=== PATIENT | male | born 1945 | race Caucasian/White ===

== ENCOUNTER → 2017-11-22 | Outpatient (CLI) | payer MEDICARE | LOC: CVU 13:58 | PROVIDERS: ATTEND Internal Medicine Cardiovascular Disease | DX: I35.1 Nonrheumatic aortic (valve) insufficiency (principal); I10 Essential (primary) hypertension; I48.91 Unspecified atrial fibrillation | CPT/HCPCS: 93306 ==

== ENCOUNTER → 2019-11-18 | Outpatient (CLI) | payer MEDICARE | END | disposition home or self-care (01) | LOC: CFH 07:36 | PROVIDERS: ATTEND Internal Medicine Cardiovascular Disease | DX: J98.4 Other disorders of lung (principal); I48.91 Unspecified atrial fibrillation; I11.9 Hypertensive heart disease without heart failure; I35.1 Nonrheumatic aortic (valve) insufficiency | CPT/HCPCS: 75571; 78452; 93017; A9502 ==

== ENCOUNTER 2020-02-20 10:56 | Day surgery (SDC) | payer MEDICARE ==
[~2020-02-20] VITALS: Ht 181.6 cm; Wt 78.2 kg
[2020-02-20] MEDS ORDERED: SODIUM CHLORIDE 0.9% 1,000 ML IV SCH ×2 (11:00→13:07)
[2020-02-20 11:25] VITALS: BP 162/98
[2020-02-20] MEDS ORDERED: INSU100C5 SQ-INSULIN (11:43)
[2020-02-20] MEDS ORDERED: UBID100T5 PO (11:43)
[2020-02-20] MEDS ORDERED: TAMS-11 PO (11:43)
[2020-02-20] MEDS ORDERED: ASPI-191 PO (11:43)
[2020-02-20] MEDS ORDERED: MULT-464 PO (11:43)
[2020-02-20] MEDS ORDERED: ATOR40TA PO (11:43)
[2020-02-20] MEDS ORDERED: ALPR0.5T6 PO (11:43)
[2020-02-20] MEDS ORDERED: METF500T17 PO (11:43)
[2020-02-20] MEDS ORDERED: INSU100V8 SQ (11:43)
[2020-02-20] MEDS ORDERED: ENAL20TA9 PO (11:43)
[2020-02-20] MEDS ORDERED: GLUC1CAP18 PO (11:52)
[2020-02-20] MEDS ORDERED: TURM500C4 PO (11:52)
[2020-02-20] MEDS ORDERED: [UNRECOGNIZED DRUG - OTHER] PO (11:52)
[2020-02-20] MEDS ORDERED: ASCO100019 PO (11:52)
[2020-02-20] MEDS ORDERED: ZINC25CA PO (11:52)
[2020-02-20] MEDS ORDERED: [UNRECOGNIZED DRUG - OTHER] PO (11:52)
[2020-02-20 11:57] LABS: BASOPHILS # (AUTO) 0.03 x10^3/uL (0-0.1); BASOPHILS % (AUTO) 1 % (0-1); EOSINOPHILS % (AUTO) 5 % (1-7); LYMPHOCYTES # (AUTO) 1.36 x10^3/uL (1-3.4); LYMPHOCYTES % (AUTO) 21 % (22-44); MD NO; MEAN CORPUSCULAR HEMOGLOBIN 31.5 pg (27.5-34.5); MEAN CORPUSCULAR HGB CONC 32.8 g/dL (33.2-36.2); MEAN CORPUSCULAR VOLUME 96.1 fL (81-97); MEAN PLATELET VOLUME 10.3 fL (7.4-10.4); MONOCYTES # (AUTO) 0.34 x10^3/uL (0.2-0.8); MONOCYTES % (AUTO) 5 % (2-9); NEUTROPHILS # (AUTO) 4.45 x10^3/uL (1.8-6.8); NEUTROPHILS % (AUTO) 69 % (42-75); PLATELET COUNT 131 x10^3/uL (130-400); RED BLOOD COUNT 4.89 x10^6/uL (4.38-5.82); RED CELL DISTRIBUTION WIDTH 13.7 % (9.4-14.8)
[2020-02-20 12:14] LABS: ANION GAP 6 mmol/L (5-15); CALCIUM 9.5 mg/dL (8.5-10.1); CHLORIDE 107 mmol/L (98-107); CREATININE 0.97 mg/dL (0.7-1.3)
== END 2020-02-20 15:09 | disposition home or self-care (01) ==
LOC: CACL 10:56
PROVIDERS: ATTEND Internal Medicine Cardiovascular Disease
DX: R00.1 Bradycardia, unspecified (principal); R07.89 Other chest pain; I10 Essential (primary) hypertension; E11.9 Type 2 diabetes mellitus without complications; I48.91 Unspecified atrial fibrillation; Z79.4 Long term (current) use of insulin; Z79.899 Other long term (current) drug therapy; Z79.82 Long term (current) use of aspirin; Z82.49 Family history of ischemic heart disease and other diseases of the circulatory system
CPT/HCPCS: 36415; 80048; 84443; 85025; 93458; C1769; C1894; Q9967

== ENCOUNTER 2020-02-21 09:59 | Observation (INO) | payer MEDICARE ==
[~2020-02-21] VITALS: Ht 181.6 cm; Wt 76.0 kg
[~2020-02-21 09:59] MED LIST: ALPR0.5T6 PO; ASCO100019 PO; ASPI-191 PO; ATOR40TA PO; ENAL20TA9 PO; FENTANYL PF 100 MCG/2ML ONE; GLUC1CAP18 PO; HEPARIN 1,000 UNITS/ML, 10ML ONE; INSU100C5 SQ-INSULIN; INSU100V8 SQ; LIDOCAINE-MPF 1%, 5ML ONE; METF500T17 PO; MIDAZOLAM 1 MG/ML, 5ML ONE; MULT-464 PO; NITROGLYCERIN 30 MCG/ML, 20ML VIAL ONE; TAMS-11 PO; TURM500C4 PO; UBID100T5 PO; VERAPAMIL 2.5 MG/ML, 2ML ONE; ZINC25CA PO; [UNRECOGNIZED DRUG - OTHER] PO; [UNRECOGNIZED DRUG - OTHER] PO
[2020-02-21] MEDS: SODIUM CHLORIDE 0.9% 1,000 ML IV SCH ×2 (10:47→18:47)
[2020-02-21 10:55] VITALS: BP 179/82
[2020-02-21] MEDS ORDERED: PLEASE ENTER HEIGHT AND WEIGHT MC SCH (11:30)
[2020-02-21] MEDS ORDERED: FENTANYL PF 100 MCG/2ML ONE (11:43)
[2020-02-21] MEDS ORDERED: CEFAZOLIN PMX 1GM/50ML 50 ML ONE (12:26)
[2020-02-21] MEDS ORDERED: LIDOCAINE 2%, 20ML ONE (12:26)
[2020-02-21] MEDS ORDERED: CEFAZOLIN 1,000 MG ONE ×2 (12:26→13:09)
[2020-02-21] MEDS ORDERED: KETOROLAC 30 MG/1 ML ONE (13:04)
[2020-02-21] MEDS ORDERED: DEXAMETHASONE 4 MG/ML, 1ML ONE (13:09)
[2020-02-21] MEDS ORDERED: GLYCOPYRROLATE 0.2MG/1ML, 5ML ONE (13:09)
[2020-02-21] MEDS ORDERED: ONDANSETRON 2MG/ML, 2ML ONE (13:09)
[2020-02-21] MEDS ORDERED: PROPOFOL 10 MG/ML, 20ML ONE (13:09)
[2020-02-21] MEDS ORDERED: SUCCINYLCHOLINE 20 MG/ML, 10ML ONE (13:09)
[2020-02-21] MEDS ORDERED: LABETALOL 5MG/ML, 20ML IV PRN (13:30)
[2020-02-21] MEDS ORDERED: PROMETHAZINE 25 MG/ML, 1ML IVPush PRN (13:30)
[2020-02-21] MEDS ORDERED: ONDANSETRON 2MG/ML, 2ML IVPush PRN (13:30)
[2020-02-21] MEDS ORDERED: ACETAMINOPHEN 325 MG TABLET PO PRN (13:30)
[2020-02-21] MEDS ORDERED: OXYcodone 5 MG/5 ML ORAL.SOL UDC PO PRN (13:30)
[2020-02-21] MEDS ORDERED: hydrALAzine 20 MG/ML, 1ML IV PRN (13:30)
[2020-02-21] MEDS ORDERED: MEPERIDINE/PF 25MG/0.5ML IVPush PRN (13:30)
[2020-02-21] MEDS ORDERED: HYDROmorphone 1 MG/ML, 1ML INJ IVPush PRN (13:30)
[2020-02-21] MEDS ORDERED: FENTANYL PF 100 MCG/2ML IV PRN (13:30)
[2020-02-21] MEDS ORDERED: EPHEDRINE 50 MG/ML, 1ML IVPush PRN (13:30)
[2020-02-21] MEDS ORDERED: ONDANSETRON 2MG/ML, 2ML IV PRN (14:00)
[2020-02-21] MEDS ORDERED: ZOLPIDEM 5MG TABLET PO PRN (14:00)
[2020-02-21] MEDS ORDERED: INSULIN GLARGINE 100 UNITS/ML, PEN SQ-INSULIN SCH ×3 (14:00→21:00)
[2020-02-21] MEDS ORDERED: HYDROcodone/APAP 5/325 TABLET PO PRN (14:00)
[2020-02-21] MEDS ORDERED: HOLD MEDICATION MC PRN (14:00)
[2020-02-21] MEDS ORDERED: hydrALAzine 20 MG/ML, 1ML ONE (14:15)
[2020-02-21 15:13] VITALS: BP 154/81
[2020-02-21 15:57] VITALS: BP 126/73
[2020-02-21] MEDS: INSULIN ASPART SC SCH ×2 (16:00→21:17)
[2020-02-21 20:48] VITALS: BP 123/69
[2020-02-21] MEDS ORDERED: TURMERIC PO SCH (21:00)
[2020-02-21] MEDS ORDERED: [UNRECOGNIZED DRUG - OTHER] PO SCH (21:00)
[2020-02-21] MEDS ORDERED: ATORVASTATIN 20 MG TABLET PO SCH (21:00)
[2020-02-21] MEDS ORDERED: TURMERIC ROOT EXTRACT PO SCH (21:00)
[2020-02-21] MEDS: CEFAZOLIN PMX 1GM/50ML 50 ML IVPB SCH (21:21)
[2020-02-21] MEDS: ENALAPRIL 20MG TABLET PO SCH ×2 (21:21→21:29)
[2020-02-21] MEDS: SODIUM CHLORIDE FLUSH 10ML SYR IVF SCH (21:22)
[2020-02-21] MEDS ORDERED: TAMSULOSIN 0.4 MG CAP.ER.24H PO SCH (22:00)
[2020-02-22 00:31] VITALS: BP 124/70
[2020-02-22] MEDS: SODIUM CHLORIDE 0.9% 1,000 ML IV SCH ×2 (02:47→10:47)
[2020-02-22] MEDS: CEFAZOLIN PMX 1GM/50ML 50 ML IVPB SCH ×2 (05:14→12:54)
[2020-02-22 07:00] VITALS: BP 156/94
[2020-02-22] MEDS: INSULIN ASPART SC SCH ×2 (07:00→11:00)
[2020-02-22] MEDS: ENALAPRIL 20MG TABLET PO SCH (08:28)
[2020-02-22] MEDS ORDERED: [UNRECOGNIZED DRUG - OTHER] PO SCH (09:00)
[2020-02-22] MEDS ORDERED: ASPIRIN 81 MG TABLET EC PO SCH (09:00)
[2020-02-22] MEDS ORDERED: TEMPLATE NON-FORMULARY MED. (Gluc Hcl/Csa/Coll Hy/Hyalur Ac** (Glucosamine Chondroitin Cap PO SCH (09:00)
[2020-02-22] MEDS ORDERED: [UNRECOGNIZED DRUG - OTHER] PO SCH (09:00)
[2020-02-22] MEDS ORDERED: TAMSULOSIN 0.4 MG CAP.ER.24H PO SCH (09:00)
[2020-02-22] MEDS ORDERED: ZINC SULFATE 220 MG CAPSULE PO SCH (09:00)
[2020-02-22] MEDS ORDERED: UBIDECARENONE 100 MG PO SCH (09:00)
[2020-02-22] MEDS ORDERED: metFORMIN 500 MG TABLET PO SCH (09:00)
[2020-02-22] MEDS ORDERED: MULTIVITAMINS/MINERALS TABLET PO SCH (09:00)
[2020-02-22] MEDS ORDERED: ASCORBIC ACID 500 MG TABLET PO SCH (09:00)
[2020-02-22] MEDS: SODIUM CHLORIDE FLUSH 10ML SYR IVF SCH (11:29)
[2020-02-22 13:15] VITALS: BP 135/81
== END 2020-02-22 14:39 | disposition home or self-care (01) ==
LOC: CACL 09:59 → ORIP 13:52 → 5SO 15:06
PROVIDERS: ADMIT Internal Medicine Cardiovascular Disease; ATTEND Internal Medicine Cardiovascular Disease
DX: I48.91 Unspecified atrial fibrillation (principal); Z20.828 Contact with and (suspected) exposure to other viral communicable diseases; I10 Essential (primary) hypertension; E11.9 Type 2 diabetes mellitus without complications; I35.1 Nonrheumatic aortic (valve) insufficiency; R00.1 Bradycardia, unspecified; R07.89 Other chest pain; Z79.82 Long term (current) use of aspirin; Z79.899 Other long term (current) drug therapy; Z79.84 Long term (current) use of oral hypoglycemic drugs
CPT/HCPCS: 33208; 71045; 71046; 82962; 87635; 93005; 96365; 96366; C1779; C1785; C1892; G0378; J0330; J0360; J0690; J1100; J1644; J1885; J2250; J2405; J2704; J3010; J3490